=== PATIENT | female | born 1965 | race Caucasian/White ===

== ENCOUNTER 2020-09-03 12:18 | Emergency (ER) | payer MEDICARE, MEDICAID, SELFPAY ==
[2020-07-26 13:14] VITALS: BMI 24.7
[2020-09-03 12:24] VITALS: BP 152/98; PULSE 100; RESP 17; TEMP 36.3; O2SAT 97; BMI 23.6
--- NOTE | 2020-09-03 12:53 | RAD_ITS ---
STUDY: X-RAY CHEST REASON FOR EXAM: Female, 54 years old. cough TECHNIQUE: AP COMPARISON: 02/25/2017 FINDINGS: The lungs are clear and expanded. There is no demonstrated pleural abnormality. Normal size heart. Normal mediastinum and samantha. Normal visualized pulmonary arteries. There is atherosclerotic tortuosity of the aortic arch and descending thoracic aorta. Normal visualized thoracic spine. Normal visualized ribs, clavicles, and shoulders. There is no demonstrated abnormality of the visualized soft tissue structures of the upper abdomen. RAD/Chest 1 View (Portable) IMPRESSION: Stable, nonacute portable x-ray examination of the chest. Electronically Signed: Justino Malcolm MD ([place]) at 13:34 EDT , Service support ,
--- NOTE | 2020-09-03 12:53 | ED.VIS.GEN ---
History of Present Illness Chief Complaint: Cough Narrative: Patient is a 54-year-old female who presents with cough and chest pain. She does have a history of COPD. She complains of increased cough, sputum, shortness of breath for about 1 month. She is trying to quit smoking and has not smoked for the past week. She complains of pain across the upper front of her chest since yesterday. This is worse with leaning forward taking a deep breath or certain movements. No history of coronary disease. No fevers. No nausea vomiting or diarrhea. Past Medical History - Allergies and Home Meds Allergies/Adverse Reactions: Allergies No Known Allergies Allergy (Verified 09/03/20 12:20) Primary Care Physician: Ector Cassidy MD [Primary Care Provider] - Past Medical History: - - Diabetes, COPD, hyperlipidemia Surgical History: - - part of small bowel removed, c/s Smoking Status: Current every day smoker - Family History Maternal Family History: Family History (Last Reviewed 11/23/19 @ 13:[address] Vijay Evans MD) Grandfather Asthma Arthritis Father Arthritis Myocardial infarction Grandmother Diabetes Mother High cholesterol Aunt Ovarian cancer Family History: Reports: No pertinent history Paternal Family History: Family History (Last Reviewed 11/23/19 @ 13:[address] Vijay Evans MD) Grandfather Asthma Arthritis Father Arthritis Myocardial infarction Grandmother Diabetes Mother High cholesterol Aunt Ovarian cancer Family History: Reports: No pertinent history Review of Systems All systems negative except as indicated General: Denies: Fever Eyes: Denies: Visual changes - bilaterally ENT: Denies: Bilateral ear pain Cardiovascular: Reports: Chest pain Respiratory: Reports: Dyspnea, Cough, Sputum Gastrointestinal: Denies: Abdominal pain, Nausea, Vomiting, Diarrhea Musculoskeletal: Denies: Myalgias, Arthralgias Skin: Denies: Rash Neurological: Denies: Headache Allergy: Denies: Uticaria Physical Exam Vital Signs/Narrative: Vital Signs Temp Pulse Resp BP Pulse Ox 09/03/20 12:24 97.3 F L 100 17 152/98 H 97 Inital Vital Signs reviewed: Yes General: Well nourished Head: Normocephalic Eyes: EOMI ENT: Moist mucous membranes Neck: Supple Cardiovascular: Regular rate, Regular rhythm Respiratory: - - Decreased air exchange and diffuse expiratory wheezing no distress able to speak in full sentences no retractions Abdomen: Soft Extremities: Nontender, No edema Skin: Normal color Neurological: Alert Psychological: Normal affect Diagnostic/Tx/Re-eval Impressions Chest X-Ray 09/03/20 12:53 IMPRESSION: Stable, nonacute portable x-ray examination of the chest. Electronically Signed: Justino Malcolm MD ([place]) at 13:34 EDT , Service support , 09/03/20 12:53 CXR [Chest 1 View (Portable)] [RAD] Stat - Medical Decision Making EKG shows normal sinus rhythm at a rate of 82 with no acute ischemic changes. Chest x-ray shows no acute findings. Patient's presentation is most consistent with a COPD exacerbation. We will treat with doxycycline and prednisone. She understands to return for new or worsening symptoms. Patient advised on signs and symptoms to monitor for. Patient was discharged. ED Disposition - Plan for ED Patient: Disposition: Home or Assisted Living Diagnosis: COPD exacerbation Instructions: ED COPD Flare Prescriptions: Doxycycline 100 mg PO BID #20 cap Prescription Printed predniSONE tablet 60 mg PO DAILY #15 tab Prescription Printed Referrals: Ector Cassidy MD [Primary Care Provider] -
--- NOTE | 2020-09-03 13:50 | EKG12_ITS ---
Test Reason : Blood Pressure : / mmHG Vent. Rate : 082 BPM Atrial Rate : 082 BPM P-R Int : 134 ms QRS Dur : 092 ms QT Int : 384 ms P-R-T Axes : 050 019 073 degrees QTc Int : 448 ms Normal sinus rhythm Low voltage QRS Borderline ECG Confirmed by STORMY BROWNE, PRANAY ([id number]), managing editor NEDRA WOLF ([id number]) on 09/06/2020 11:18:33 AM Referred By: TONO/SONY Confirmed By:PRANAY BURROWS MD
[2020-09-03 14:28] VITALS: PULSE 98; RESP 17; O2SAT 99
== END 2020-09-03 14:29 | disposition home or self-care (01) ==
PROVIDERS: Emergency Provider Emergency Medicine; PCP Family Medicine
DX: J44.1 Chronic obstructive pulmonary disease with (acute) exacerbation (principal); E78.5 Hyperlipidemia, unspecified; E11.9 Type 2 diabetes mellitus without complications; F17.200 Nicotine dependence, unspecified, uncomplicated
CPT/HCPCS: 71045; 93005; 99282

== ENCOUNTER → 2020-12-07 15:41 | Outpatient (CLI) | payer MEDICARE, MEDICAID, SELFPAY ==
[2020-12-07 19:38] LABS: T4 Free Direct 1.59 ng/dL (0.76-1.46); Thyroid Stim Hormone (TSH) < 0.01 uIU/mL (0.358-3.74)
== END ==
PROVIDERS: PCP Family Medicine; Referring Provider Internal Medicine Endocrinology, Diabetes & Metabolism; Visit Provider Internal Medicine Endocrinology, Diabetes & Metabolism
DX: E05.90 Thyrotoxicosis, unspecified without thyrotoxic crisis or storm (principal)
CPT/HCPCS: 36415; 84439; 84443; 84481

== ENCOUNTER → 2021-01-10 12:07 | Outpatient (CLI) | payer MEDICARE, MEDICAID, SELFPAY ==
[2021-01-10 12:07] VITALS: BMI 24.7
[2021-01-10 14:23] LABS: Free T3 3.8 pg/mL (2.18-3.98); Thyroid Stim Hormone (TSH) < 0.01 uIU/mL (0.358-3.74)
== END ==
PROVIDERS: PCP Family Medicine; Referring Provider Internal Medicine Endocrinology, Diabetes & Metabolism; Visit Provider Internal Medicine Endocrinology, Diabetes & Metabolism
DX: E05.90 Thyrotoxicosis, unspecified without thyrotoxic crisis or storm (principal); E11.65 Type 2 diabetes mellitus with hyperglycemia
CPT/HCPCS: 36415; 83036; 84439; 84443; 84481

== ENCOUNTER → 2021-05-11 10:18 | Outpatient (CLI) | payer MEDICARE, MEDICAID, SELFPAY ==
[2021-04-20 13:43] VITALS: BMI 24.7
[2021-05-11 12:32] LABS: ALB/GLOB Ratio 1.1 RATIO (0.9-2.4); AST(SGOT) 21 U/L (15-37); Alanine Aminotransfer ALT/SGPT 19 U/L (13-56); Albumin, Serum 3.9 g/dL (3.2-5.0); Alkaline Phosphatase 86 U/L (45-117); Anion Gap 5 (5-15); BUN 21 mg/dL (7-18); BUN/Creat Ratio 42.9 RATIO (10-20); Calcium,Total 8.8 mg/dL (8.5-10.1); Chloride 105 mmol/L (98-107); Cholesterol 142 mg/dL (200); Creatinine, Serum 0.49 mg/dL (0.55-1.02); EST Glomerular Filtration Rate 138 mL/min (>60); Est Glom Filt Rate - Afr Amer 168 mL/min (>60); Globulin 3.5 g/dL (2.2-4.2); Glucose 90 mg/dL (74-106); High Density Lipoprotein 64 mg/dL; Potassium 3.4 mmol/L (3.5-5.1); Protein, Total 7.4 g/dL (6.4-8.2); Sodium Level 138 mmol/L (136-145); Triglycerides 63 mg/dL
[2021-05-11 12:33] LABS: Free T3 3.2 pg/mL (2.18-3.98); T4 Free Direct 1.07 ng/dL (0.76-1.46); Thyroid Stim Hormone (TSH) < 0.01 uIU/mL (0.358-3.74); Very Low Density Lipoprotein 13 mg/dL (5-40)
== END ==
PROVIDERS: PCP Family Medicine; Referring Provider Internal Medicine Endocrinology, Diabetes & Metabolism; Visit Provider Internal Medicine Endocrinology, Diabetes & Metabolism
DX: D51.0 Vitamin B12 deficiency anemia due to intrinsic factor deficiency (principal); E05.90 Thyrotoxicosis, unspecified without thyrotoxic crisis or storm; E11.65 Type 2 diabetes mellitus with hyperglycemia
CPT/HCPCS: 36415; 80053; 80061; 84439; 84443; 84481

== ENCOUNTER → 2021-10-19 13:28 | Outpatient (CLI) | payer MEDICARE, SELFPAY ==
[2021-10-19 15:36] LABS: Anion Gap 7 (5-15); BUN 18 mg/dL (7-18); BUN/Creat Ratio 27.5 RATIO (10-20); Calcium,Total 9.2 mg/dL (8.5-10.1); Chloride 105 mmol/L (98-107); Creatinine, Serum 0.65 mg/dL (0.55-1.02); EST Glomerular Filtration Rate 99 mL/min (>60); Est Glom Filt Rate - Afr Amer 120 mL/min (>60); Glucose 74 mg/dL (74-106); Potassium 3.4 mmol/L (3.5-5.1); Sodium Level 139 mmol/L (136-145); T4 Free Direct 0.47 ng/dL (0.76-1.46)
== END ==
PROVIDERS: PCP Family Medicine; Visit Provider Internal Medicine Endocrinology, Diabetes & Metabolism
DX: E11.65 Type 2 diabetes mellitus with hyperglycemia (principal); D51.0 Vitamin B12 deficiency anemia due to intrinsic factor deficiency; E05.90 Thyrotoxicosis, unspecified without thyrotoxic crisis or storm
CPT/HCPCS: 36415; 80048; 84439; 84443; 84481

== ENCOUNTER → 2022-04-28 | Outpatient (CLI) | payer MEDICARE, SELFPAY ==
[2022-04-28 10:45] LABS: Free T3 6.7 pg/mL (2.18-3.98); T4 Free Direct 2.04 ng/dL (0.76-1.46); Thyroid Stim Hormone (TSH) < 0.01 uIU/mL (0.358-3.74)
== END | disposition home or self-care (01) ==
PROVIDERS: PCP Family Medicine; Referring Provider Nurse Practitioner Family; Visit Provider Nurse Practitioner Family
DX: E05.90 Thyrotoxicosis, unspecified without thyrotoxic crisis or storm (principal)
CPT/HCPCS: 36415; 84439; 84443; 84481

== ENCOUNTER → 2022-05-19 | Outpatient (CLI) | payer MEDICARE, MEDICAID, SELFPAY ==
[2022-05-19 09:35] LABS: Microalbumin,Random Urine 23.7 mg/L (NO RANGE EST.); Microalbumin:Creatinine Ratio 26.6 mg/g CRE (<30 mg/g CRE)
[2022-05-19 09:57] LABS: ALB/GLOB Ratio 0.9 RATIO (0.9-2.4); AST(SGOT) 15 U/L (15-37); Alanine Aminotransfer ALT/SGPT 20 U/L (13-56); Alkaline Phosphatase 111 U/L (45-117); Anion Gap 6 (5-15); BUN 15 mg/dL (7-18); BUN/Creat Ratio 28.7 RATIO (10-20); Calcium,Total 8.2 mg/dL (8.5-10.1); Chloride 107 mmol/L (98-107); Cholesterol 119 mg/dL (200); Creatinine, Serum 0.52 mg/dL (0.55-1.02); EST Glomerular Filtration Rate 128 mL/min (>60); Est Glom Filt Rate - Afr Amer 154 mL/min (>60); Free T3 2.8 pg/mL (2.18-3.98); Globulin 3.4 g/dL (2.2-4.2); Glucose 154 mg/dL (74-106); High Density Lipoprotein 52 mg/dL; Potassium 3.3 mmol/L (3.5-5.1); Protein, Total 6.4 g/dL (6.4-8.2); Sodium Level 140 mmol/L (136-145); T4 Free Direct 1.03 ng/dL (0.76-1.46); Thyroid Stim Hormone (TSH) < 0.01 uIU/mL (0.358-3.74); Triglycerides 66 mg/dL; Very Low Density Lipoprotein 13 mg/dL (5-40)
== END | disposition home or self-care (01) ==
PROVIDERS: PCP Family Medicine; Referring Provider Nurse Practitioner Family; Visit Provider Nurse Practitioner Family
DX: E11.65 Type 2 diabetes mellitus with hyperglycemia (principal); E05.90 Thyrotoxicosis, unspecified without thyrotoxic crisis or storm
CPT/HCPCS: 36415; 80053; 80061; 82043; 82570; 84439; 84443; 84481

== ENCOUNTER → 2022-08-21 | Outpatient (CLI) | payer MEDICARE, MEDICAID, SELFPAY ==
[2022-08-13 10:34] LABS: Absolute Lymphocyte Count 1.64 X10^3/uL (0.83-4.51); Absolute Neutrophil Count 7.4 X10^3/uL (2.0-7.7); Basophil# 0.01 X10^3/uL; Basophil% 0.1 % (0-1); Eosinophil# 0.13 X10^3/uL; Eosinophils% 1.3 % (0-5); Hematocrit 39.6 % (37-47); Lymphocyte # 1.64 X10^3/ul (0.83-4.51); Lymphocyte % 16.8 % (19-41); Mean Corp Hgb Conc 30.3 g/dL (32-36); Mean Corpuscular Hgb 24.9 pg (27.0-32.0); Mean Corpuscular Volume 82.3 fL (81-99); Mean Platelet Vol. 9.7 fl (6.2-12.0); Monocyte# 0.56 X10^3/uL; Monocyte% 5.7 % (0-10); NRBC Flagged by Analyzer 0 % (0-5); Neutrophil # 7.36 X10^3/uL (2.7-7.7); Neutrophil % 75.5 % (47-70); Platelet Count 409 K/mm3 (150-450); RBC Distribution Width CV 15.3 % (11.6-14.6); RBC Distribution Width SD 46.1 fl (35.1-43.9); Red Blood Count 4.81 M/mm3 (4.2-5.4); White Blood Count 9.8 K/mm3 (4.4-11.0)
[2022-08-13 11:09] LABS: ALB/GLOB Ratio 0.7 RATIO (0.9-2.4); AST(SGOT) 10 U/L (15-37); Alanine Aminotransfer ALT/SGPT 14 U/L (13-56); Albumin, Serum 3.1 g/dL (3.2-5.0); Alkaline Phosphatase 119 U/L (45-117); Anion Gap 7 (5-15); BUN 25 mg/dL (7-18); BUN/Creat Ratio 38.9 RATIO (10-20); Calcium,Total 9.2 mg/dL (8.5-10.1); Chloride 105 mmol/L (98-107); Creatinine, Serum 0.64 mg/dL (0.55-1.02); EST Glomerular Filtration Rate 101 mL/min (>60); Est Glom Filt Rate - Afr Amer 122 mL/min (>60); Globulin 4.7 g/dL (2.2-4.2); Glucose 136 mg/dL (74-106); Potassium 3.8 mmol/L (3.5-5.1); Protein, Total 7.8 g/dL (6.4-8.2); Sodium Level 141 mmol/L (136-145)
[2022-08-13 11:30] LABS: Free T3 2.4 pg/mL (2.18-3.98); T4 Free Direct 0.75 ng/dL (0.76-1.46); Thyroid Stim Hormone (TSH) 1.07 uIU/mL (0.358-3.74)
--- NOTE | 2022-08-21 13:51 | US_ITS ---
INDICATION: thyroid disease EXAMINATION: Ultrasound US Thyroid (eg thyroid, parathyroid, parotid) TECHNIQUE: Dumont scale and color doppler imaging was performed of the thyroid gland. COMPARISON: None. FINDINGS: RIGHT THYROID LOBE: 3.2 x 6.5 x 1.9 cm with heterogeneous echotexture. No hyperemia. Nodule: solid isoechoic wider than tall ill-defined 2.3 x 1.6 x 1.8 cm nodules with punctate echogenic foci, TI-RAD 4. Nodule: Posterior 2.2 x 1.3 x 1.5 cm rim calcified round anechoic wider than tall ill-defined nodule without calcification, possibly cystic or solid with evaluation limited by shadowing, TI-RAD 4. Evaluation is limited by the shadowing from the calcification. Nodule: Measured anterior inferior indistinctness likely . LEFT THYROID LOBE: 2.1 x 4.7 x 1.6 cm with heterogeneous echotexture. No hyperemia.. Nodule: 0.8 x 0.6 x 0.9 cm solid hypoechoic wider than tall smoothly marginated nodule with questionable small coarse calcification in the anterior upper thyroid, TI-RAD 4. Nodule: 1.9 x 1.3 x 1.5 cm mixed cystic solid hypoechoic wider than tall smoothly marginated nodule with central coarse calcification TI-RAD 4. Nodule: Measured area likely represents pseudonodule in the lower pole. ISTHMUS: 7 mm. No thyroid nodules are present. Nodule: 0.9 x 1.2 x 0.7 cm hypoechoic solid nodule wider than tall with smooth margins and no calcifications TI-RAD 4. US/Thyroid IMPRESSION: Heterogeneous multinodular thyromegaly with multiple bilateral TIRAD 4 nodules. The right thyroid nodules are indistinct. Left thyroid nodules and isthmus nodule are more conspicuous measuring up to 1.9 cm on the left. Consider endocrine followup for consideration of fine-needle aspiration of largest left thyroid nodule. Comparison with prior ultrasound would be helpful if available.. Electronically Signed: Presley Celestin MD at 4:19 EDT ,
== END | disposition home or self-care (01) ==
LOC: US 13:50
PROVIDERS: Internal Medicine Endocrinology, Diabetes & Metabolism; PCP Family Medicine; Referring Provider Nurse Practitioner Family; Visit Provider Nurse Practitioner Family
DX: E11.65 Type 2 diabetes mellitus with hyperglycemia (principal); I10 Essential (primary) hypertension; E05.90 Thyrotoxicosis, unspecified without thyrotoxic crisis or storm; D51.0 Vitamin B12 deficiency anemia due to intrinsic factor deficiency; E07.9 Disorder of thyroid, unspecified
CPT/HCPCS: 36415; 76536; 80053; 84439; 84443; 84481; 85025

== ENCOUNTER → 2022-10-31 | Outpatient (CLI) | payer MEDICARE, MEDICAID, SELFPAY ==
--- NOTE | 2022-10-31 08:30 | ASPSI_PTH ---
PATIENT: FLY SALAZAR LOC: [facility]#:[id number] AGE/SX: 57/F ROOM: RE10/31/[address]: Dr. Evan Rosas MD : 1965 BED: DIS: 10/31/2022 SPEC #: [id number] RECD: 10/31/22 12:25 STATUS: TRACEY GUSTABO #: [id number] CHIKI: 10/31/22 08:[address]: Evan Rosas DEPT: CYTOLOGY RECD BY: Blessing Hearn ENTERED: 10/31/22 12:29 SP TYPE: ASP EVIE SZYMANSKI DR: Dr. Ector Cassidy MD Tissues: A - Thyroid gland, NOS B - Thyroid gland, NOS C - Thyroid gland, NOS D - Thyroid gland, NOS E - Thyroid gland, NOS F - Thyroid gland, NOS G - Thyroid gland, NOS H - Thyroid gland, NOS Procedures: Surgery Specimen Level IV Cytospin Fluid Cytology Other HEADER OPERATION: Thyroid fine needle aspiration x4 PRE-OP DIAGNOSIS: Multiple thyroid nodules TISSUE SUBMITTED: A - Right superior thyroid nodule fluid, B - Right superior thyroid nodule, C - Right mid thyroid nodule fluid, D - Right mid thyroid nodule, E - Right inferior thyroid nodule fluid, F - Right inferior thyroid nodule, G - Left mid thyroid nodule fluid, H - Left mid thyroid nodule DIAGNOSIS CYTOLOGY A. Right superior thyroid nodule fluid, fine needle aspiration (cytospin and cell block): Negative for malignant cells. See comment. B. Right superior thyroid nodule, fine needle aspiration (smears): Nondiagnostic/unsatisfactory specimen ([place] Category I). See comment. C. Right mid thyroid nodule fluid, fine needle aspiration (cytospin and cell block): Negative for malignant cells. See comment. D. Right mid thyroid nodule, fine needle aspiration (smears): Consistent with benign follicular/colloid nodule ([place] Category II). Adequate for evaluation. E. Right inferior thyroid nodule fluid, fine needle aspiration (cytospin and cell block): Negative for malignant cells. See comment. F. Right inferior thyroid nodule, fine needle aspiration (smears): Consistent with benign follicular/colloid nodule ([place] Category II). Adequate for evaluation. G. Left mid thyroid nodule fluid, fine needle aspiration (cytospin and cell block): Consistent with benign follicular/colloid nodule ([place] Category II). Adequate for evaluation. H. Left mid thyroid nodule, fine needle aspiration (smears): Consistent with benign follicular/colloid nodule with cystic changes ([place] Category II). Adequate for evaluation. SJ:leslie 11/01/2022 COMMENT A. Follicular cells are not seen. B. Rare follicular are noted. C. A few clusters of benign follicular cells are noted. E. A few clusters of benign follicular cells are noted. Correlation with clinical, radiologic findings and appropriate follow up are necessary. CYTOLOGY STUDY Slides are reviewed. CYTOLOGY GROSS A - Received is 10 ml of red cloudy fluid labeled with the patient's name and and designated per the requisition as right superior thyroid nodule. Submitted for cytology preparation including cell block. B - Received are four smears labeled with the patient's name and designated per the requisition as right superior thyroid nodule. Submitted for staining. C - Received is 15 ml of red cloudy fluid labeled with the patient's name and and designated per the requisition as right mid thyroid nodule. Submitted for cytology preparation including cell block. D - Received are four smears labeled with the patient's name and designated per the requisition as right mid thyroid nodule. Submitted for staining. E - Received is 15 ml of red cloudy fluid labeled with the patient's name and and designated per the requisition as right inferior thyroid nodule. Submitted for cytology preparation including cell block. F - Received are four smears labeled with the patient's name and designated per the requisition as right inferior thyroid nodule. Submitted for staining. G - Received is 30 ml of red cloudy fluid labeled with the patient's name and and designated per the requisition as left mid thyroid nodule. Submitted for cytology preparation including cell block. H - Received are four smears labeled with the patient's name and designated per the requisition as left mid thyroid nodule. Submitted for staining. / leslie 10/31/2022 TC:5 CPT: 59252 x8, 32658 x4
== END | disposition home or self-care (01) ==
LOC: LABSPEC 10:48
PROVIDERS: PCP Family Medicine; Referring Provider Surgery; Visit Provider Surgery
DX: E04.2 Nontoxic multinodular goiter (principal)
CPT/HCPCS: 88108; 88161; 88305

== ENCOUNTER → 2023-02-07 | Outpatient (CLI) | payer MEDICARE, MEDICAID, SELFPAY ==
[2023-02-07 11:24] LABS: ALB/GLOB Ratio 0.7 RATIO (0.9-2.4); AST(SGOT) 14 U/L (15-37); Alanine Aminotransfer ALT/SGPT 21 U/L (13-56); Albumin, Serum 2.7 g/dL (3.2-5.0); Alkaline Phosphatase 145 U/L (45-117); Anion Gap 5 (5-15); BUN 22 mg/dL (7-18); BUN/Creat Ratio 31.8 RATIO (10-20); Calcium,Total 8.8 mg/dL (8.5-10.1); Chloride 103 mmol/L (98-107); Creatinine, Serum 0.69 mg/dL (0.55-1.02); EST Glomerular Filtration Rate 92 mL/min (>60); Est Glom Filt Rate - Afr Amer 112 mL/min (>60); Free T3 4.9 pg/mL (2.18-3.98); Glucose 372 mg/dL (74-106); Protein, Total 6.7 g/dL (6.4-8.2); Sodium Level 133 mmol/L (136-145); T4 Free Direct 1.62 ng/dL (0.76-1.46); Thyroid Stim Hormone (TSH) < 0.01 uIU/mL (0.358-3.74)
== END | disposition home or self-care (01) ==
LOC: LAB 09:35
PROVIDERS: PCP Family Medicine; Referring Provider Nurse Practitioner Family; Visit Provider Nurse Practitioner Family
DX: E11.9 Type 2 diabetes mellitus without complications (principal); E05.90 Thyrotoxicosis, unspecified without thyrotoxic crisis or storm
CPT/HCPCS: 36415; 80053; 84439; 84443; 84481

== ENCOUNTER → 2023-03-29 | Outpatient (CLI) | payer MEDICARE, MEDICAID, SELFPAY ==
[2023-03-29 10:18] LABS: ALB/GLOB Ratio 0.8 RATIO (0.9-2.4); AST(SGOT) 17 U/L (15-37); Alanine Aminotransfer ALT/SGPT 18 U/L (13-56); Albumin, Serum 3.3 g/dL (3.2-5.0); Alkaline Phosphatase 127 U/L (45-117); Anion Gap 9 (5-15); BUN 30 mg/dL (7-18); BUN/Creat Ratio 47.6 RATIO (10-20); Calcium,Total 8.7 mg/dL (8.5-10.1); Chloride 103 mmol/L (98-107); Creatinine, Serum 0.63 mg/dL (0.55-1.02); EST Glomerular Filtration Rate 103 mL/min (>60); Est Glom Filt Rate - Afr Amer 124 mL/min (>60); Free T3 1.5 pg/mL (2.18-3.98); Globulin 4.2 g/dL (2.2-4.2); Glucose 107 mg/dL (74-106); Potassium 3.4 mmol/L (3.5-5.1); Protein, Total 7.5 g/dL (6.4-8.2); Sodium Level 139 mmol/L (136-145); T4 Free Direct 0.47 ng/dL (0.76-1.46)
== END | disposition home or self-care (01) ==
LOC: LAB 09:34
PROVIDERS: PCP Family Medicine; Visit Provider Nurse Practitioner Family
DX: E05.90 Thyrotoxicosis, unspecified without thyrotoxic crisis or storm (principal); E11.65 Type 2 diabetes mellitus with hyperglycemia
CPT/HCPCS: 36415; 80053; 84439; 84443; 84481

== ENCOUNTER → 2023-04-10 | Outpatient (CLI) | payer MEDICARE, MEDICAID, SELFPAY ==
--- NOTE | 2023-04-10 09:29 | EKG12_ITS ---
Test Reason : PRE OP Blood Pressure : / mmHG Vent. Rate : 064 BPM Atrial Rate : 064 BPM P-R Int : 130 ms QRS Dur : 088 ms QT Int : 440 ms P-R-T Axes : 039 014 060 degrees QTc Int : 453 ms Normal sinus rhythm Normal ECG Confirmed by STORMY BROWNE, PRANAY ([id number]), editor sound THIAGO CARNES ([id number]) on 04/10/2023 1:19:19 PM Referred By: PONCHO Confirmed By:PRANAY BURROWS MD
[2023-04-10 11:24] LABS: Hematocrit 37.3 % (37-47); Hemoglobin 11.3 g/dL (12.0-15.0); Mean Corp Hgb Conc 30.3 g/dL (32-36); Mean Corpuscular Hgb 24.8 pg (27.0-32.0); Mean Platelet Vol. 10.7 fl (6.2-12.0); Platelet Count 382 K/mm3 (150-450); RBC Distribution Width CV 17.5 % (11.6-14.6); RBC Distribution Width SD 50.9 fl (35.1-43.9); Red Blood Count 4.55 M/mm3 (4.2-5.4); White Blood Count 10.2 K/mm3 (4.4-11.0)
[2023-04-10 11:59] LABS: Anion Gap 7 (5-15); BUN 30 mg/dL (7-18); BUN/Creat Ratio 47.8 RATIO (10-20); Calcium,Total 8.8 mg/dL (8.5-10.1); Chloride 106 mmol/L (98-107); Creatinine, Serum 0.63 mg/dL (0.55-1.02); EST Glomerular Filtration Rate 103 mL/min (>60); Est Glom Filt Rate - Afr Amer 125 mL/min (>60); Glucose 125 mg/dL (74-106); Sodium Level 139 mmol/L (136-145)
[2023-04-10 12:16] LABS: Free T3 1.8 pg/mL (2.18-3.98); T4 Free Direct 0.48 ng/dL (0.76-1.46)
[2023-04-10 12:41] LABS: Hemoglobin A1c 10.9 % (3.8-5.6)
== END | disposition home or self-care (01) ==
LOC: PAT 05-21 09:33
PROVIDERS: Anesthesiology; Nurse Practitioner Family; PCP Family Medicine; Visit Provider Surgery
DX: Z01.818 Encounter for other preprocedural examination (principal); E05.90 Thyrotoxicosis, unspecified without thyrotoxic crisis or storm
CPT/HCPCS: 36415; 80048; 83036; 84439; 84443; 84481; 85027; 93005

== ENCOUNTER → 2023-05-15 | Outpatient (CLI) | payer MEDICARE, MEDICAID, SELFPAY ==
[2023-05-15 13:28] LABS: Cholesterol 135 mg/dL (200); Free T3 1.7 pg/mL (2.18-3.98); High Density Lipoprotein 58 mg/dL; T4 Free Direct 0.57 ng/dL (0.76-1.46); Thyroid Stim Hormone (TSH) 4.38 uIU/mL (0.358-3.74); Triglycerides 78 mg/dL; Very Low Density Lipoprotein 16 mg/dL (5-40)
== END | disposition home or self-care (01) ==
PROVIDERS: PCP Family Medicine; Referring Provider Nurse Practitioner Family; Visit Provider Nurse Practitioner Family
DX: E05.90 Thyrotoxicosis, unspecified without thyrotoxic crisis or storm (principal); E11.65 Type 2 diabetes mellitus with hyperglycemia
CPT/HCPCS: 36415; 80061; 84439; 84443; 84481

== ENCOUNTER → 2023-06-13 | Outpatient (CLI) | payer MEDICARE, MEDICAID, SELFPAY ==
[2023-06-13 16:38] LABS: Free T3 1.9 pg/mL (2.18-3.98); T4 Free Direct 0.57 ng/dL (0.76-1.46); Thyroid Stim Hormone (TSH) 4.71 uIU/mL (0.358-3.74)
== END | disposition home or self-care (01) ==
LOC: LAB 15:17
PROVIDERS: PCP Family Medicine; Referring Provider Nurse Practitioner Family; Visit Provider Nurse Practitioner Family
DX: E05.90 Thyrotoxicosis, unspecified without thyrotoxic crisis or storm (principal)
CPT/HCPCS: 36415; 84439; 84443; 84481

== ENCOUNTER → 2023-08-06 | Outpatient (CLI) | payer MEDICARE, MEDICAID, SELFPAY ==
--- NOTE | 2023-08-06 12:52 | US_ITS ---
INDICATION: thyroid nodule EXAMINATION: Ultrasound US Thyroid (eg thyroid, parathyroid, parotid) TECHNIQUE: Dumont scale and color doppler imaging was performed of the thyroid gland. COMPARISON: None. FINDINGS: RIGHT THYROID LOBE: 6.8 x 3.0 x 2.2 cm. Heterogenous echotexture without hyperemia. [3 nodules present and measured. Upper pole nodule is solid, isoechoic with well-defined margins, wider than tall with punctate echogenic foci internally, TI RADS level 4 or moderately suspicious. Second nodule midpole measures 1.5 x 1.4 x 1.7 cm, solid isoechoic echotexture with poorly defined margins and coarse calcifications, wider than tall, TI RADS level 4 or moderately suspicious. Third nodule lower pole, solid and isoechoic with well-defined margins, wider than tall and coarse macrocalcifications, TI RADS level 4 or moderately suspicious. LEFT THYROID LOBE: 5.3 x 2.0 x 1.8 cm. Heterogenous echotexture without hyperemia. [2 nodules present and measured. Larger midpole nodule 2.3 x 1.7 x 1.7 cm is solid/cystic, isoechoic with well-defined margins, wider than tall with scattered microcalcifications, TI RADS level 4 or moderately suspicious. Second midpole nodule is solid/cystic, 1.1 x 1.0 x 0.9 cm, isoechoic, wider than tall with scattered punctate calcifications internally, TI RADS level 4 or moderately suspicious. ISTHMUS: 6 mm. Solid nodule measures 1.3 x 0.9 x 0.6 cm, isoechoic, wider than tall with smooth margins and no associated echogenic foci, TI RADS level 3 or mildly suspicious. US/Thyroid IMPRESSION: Thyromegaly with multinodular goiter. Bilateral TI RADS level 3 nodules are moderately suspicious and have minimally changed in size. If not previously evaluated, the 2.0 cm nodule right lobe and 2.3 cm nodule left lobe should be evaluated by fine-needle aspiration and the remaining nodules followed annually. Electronically Signed: Ramon White MD at 17:05 EDT ,
== END | disposition home or self-care (01) ==
LOC: US 12:51
PROVIDERS: PCP Family Medicine; Referring Provider Surgery; Visit Provider Surgery
DX: E07.9 Disorder of thyroid, unspecified (principal); E04.1 Nontoxic single thyroid nodule
CPT/HCPCS: 76536

== ENCOUNTER → 2023-08-16 | Outpatient (CLI) | payer MEDICARE, MEDICAID, SELFPAY ==
[2023-08-16 11:34] LABS: Free T3 2.2 pg/mL (2.18-3.98); T4 Free Direct 0.68 ng/dL (0.76-1.46); Thyroid Stim Hormone (TSH) 5.27 uIU/mL (0.358-3.74)
== END | disposition home or self-care (01) ==
LOC: LAB 10:38
PROVIDERS: PCP Family Medicine; Referring Provider Nurse Practitioner Family; Visit Provider Nurse Practitioner Family
DX: E05.90 Thyrotoxicosis, unspecified without thyrotoxic crisis or storm (principal)
CPT/HCPCS: 36415; 84439; 84443; 84481